=== PATIENT | male | born 1970 | race Caucasian/White ===

== ENCOUNTER 2017-09-30 23:42 | Emergency (ER) | payer MEDICAID, SELFPAY ==
[~2017-09-30] VITALS: Ht 175.3 cm; Wt 93.0 kg
[2017-10-01 00:06] VITALS: BP 144/93
[2017-10-01 00:28] LABS: BASOPHILS # (AUTO) 0.03 x10^3/uL (0-0.1); BASOPHILS % (AUTO) 0 % (0-1); EOSINOPHILS # (AUTO) 0.42 x10^3/uL (0-0.4); EOSINOPHILS % (AUTO) 7 % (1-7); LYMPHOCYTES # (AUTO) 1.51 x10^3/uL (1-3.4); LYMPHOCYTES % (AUTO) 26 % (22-44); MD NO; MEAN CORPUSCULAR HGB CONC 32.7 g/dL (33.2-36.2); MEAN CORPUSCULAR VOLUME 85.5 fL (81-97); MEAN PLATELET VOLUME 7.1 fL (7.4-10.4); MONOCYTES # (AUTO) 0.75 x10^3/uL (0.2-0.8); MONOCYTES % (AUTO) 13 % (2-9); NEUTROPHILS # (AUTO) 3.19 x10^3/uL (1.8-6.8); NEUTROPHILS % (AUTO) 54 % (42-75); PLATELET COUNT 275 x10^3/uL (130-400); RED BLOOD COUNT 4.82 x10^6/uL (4.38-5.82); RED CELL DISTRIBUTION WIDTH 15.6 % (9.4-14.8)
[2017-10-01 00:36] LABS: ALBUMIN 2.7 g/dL (3.4-5.0); ANION GAP 6 mmol/L (5-15); CALCIUM 8.3 mg/dL (8.5-10.1); CHLORIDE 106 mmol/L (98-107); CREATININE 0.83 mg/dL (0.7-1.3)
== END 2017-10-01 02:05 | disposition left against medical advice (07) ==
LOC: ED 23:59
DX: L03.114 Cellulitis of left upper limb (principal); M25.522 Pain in left elbow; F15.10 Other stimulant abuse, uncomplicated
CPT/HCPCS: 36415; 80048; 82040; 85025; 99285

== ENCOUNTER 2017-10-19 20:43 | Emergency (ER) | payer MEDICAID ==
[~2017-10-19] VITALS: Ht 175.3 cm; Wt 90.5 kg
[2017-10-19] MEDS ORDERED: SODIUM CHLORIDE FLUSH 10ML SYR IVF ONE (21:00)
[2017-10-19] MEDS ORDERED: SODIUM CHLORIDE 0.9% 1,000ML IVBOLUS ONE (21:00)
[2017-10-19] MEDS ORDERED: LIDOCAINE 1%, 10ML INFIL ONE (21:00)
[2017-10-19] MEDS ORDERED: CEFAZOLIN PMX 1GM/50ML 50 ML IVPB ONE (21:30)
[2017-10-19] MEDS ORDERED: VANCOMYCIN PER PHARMACY MC ONE (21:30)
[2017-10-19] MEDS ORDERED: VANCOMYCIN 1,800 MG in SODIUM CHLORIDE 0.9% 250 ML IV ONE (21:30)
[2017-10-19 21:39] LABS: BASOPHILS # (AUTO) 0.03 x10^3/uL (0-0.1); BASOPHILS % (AUTO) 0 % (0-1); EOSINOPHILS % (AUTO) 1 % (1-7); LYMPHOCYTES # (AUTO) 1.28 x10^3/uL (1-3.4); LYMPHOCYTES % (AUTO) 16 % (22-44); MD NO; MEAN CORPUSCULAR HEMOGLOBIN 27.4 pg (27.5-34.5); MEAN CORPUSCULAR HGB CONC 33.3 g/dL (33.2-36.2); MEAN CORPUSCULAR VOLUME 82.2 fL (81-97); MEAN PLATELET VOLUME 6.7 fL (7.4-10.4); MONOCYTES # (AUTO) 0.58 x10^3/uL (0.2-0.8); MONOCYTES % (AUTO) 8 % (2-9); NEUTROPHILS # (AUTO) 5.83 x10^3/uL (1.8-6.8); NEUTROPHILS % (AUTO) 75 % (42-75); PLATELET COUNT 312 x10^3/uL (130-400); RED BLOOD COUNT 4.71 x10^6/uL (4.38-5.82); RED CELL DISTRIBUTION WIDTH 14.9 % (9.4-14.8)
[2017-10-19 21:51] LABS: ANION GAP 8 mmol/L (5-15); CHLORIDE 106 mmol/L (98-107); CREATININE 0.99 mg/dL (0.7-1.3)
[2017-10-19 21:52] LABS: ALBUMIN 2.6 g/dL (3.4-5.0)
[2017-10-19] MEDS ORDERED: LIDOCAINE 1%, 20ML ONE (22:08)
[2017-10-19] MEDS ORDERED: CEFAZOLIN PMX 1GM/50ML 50 ML ONE (23:43)
[2017-10-20 00:46] VITALS: BP 122/84
== END 2017-10-20 01:00 | disposition home or self-care (01) ==
LOC: ED 22:18
DX: L03.114 Cellulitis of left upper limb (principal); Z72.89 Other problems related to lifestyle; F15.10 Other stimulant abuse, uncomplicated
CPT/HCPCS: 10060; 36415; 73080; 80048; 82040; 83605; 85025; 87040; 96361; 96365; 96366; 96368; 99285; J0690; J3370; J7030; J7050

== ENCOUNTER 2017-11-02 19:55 | Emergency (ER) | payer MEDICAID ==
[~2017-11-02] VITALS: Ht 175.3 cm; Wt 93.6 kg
[2017-11-02 19:56] VITALS: BP 125/84
== END 2017-11-02 21:45 | disposition left against medical advice (07) ==
LOC: ED 20:10
DX: Z53.21 Procedure and treatment not carried out due to patient leaving prior to being seen by health care provider (principal)